=== PATIENT | female | born 1940 | race Caucasian/White ===

== ENCOUNTER 2016-04-28 15:18 | Inpatient (IN) | payer BC, MEDICARE, OTHER ==
[2016-04-28] VITALS (155 sets, daily range): BP systolic 120–130; BP diastolic 55–76; PULSE 64–84; TEMP 97–97.5; O2SAT 93–100
[~2016-04-28] VITALS: Ht 152.4 cm; Wt 77.7 kg
[~2016-04-28 15:18] MED LIST: AMOXICILLIN 8751 TAB PO; ASPIRIN E.C. 8181 MG PO; BYSTOLIC2.5 MG PO; DEPAKOTE 250MG250 MG PO; DEPAKOTE250 M1 PO; ELIQUIS 2.5 PO; INDERAL LA 60MG60 MG PO; LIPITOR20 MG PO; MULTAQ400 MG PO; PREDNISONE20 MG PO; PREVACID 15MG15 M1 PO; PROPRANOLOL60 MG PO; PROZAC40 MG PO; TOPROL XL 50MG50 MG PO; ULTRAM 50MG TAB50 MG PO; XARELTO20 MG PO; ZOVIRAX51 TP
[2016-04-28 15:51] LABS: BASO # 0.1 (0.0-0.2); EOS # 0.2 (0.0-0.7); EOS % 2.2 % (0-4.0); GRAN # 4.6 (1.4-6.5); GRAN % 64.6 % (42.2-75.2); HEMATOCRIT 37.5 % (37.0-47.0); HEMOGLOBIN 12.2 g/dl (12.5-16.0); LYMPH # 1.4 (1.2-3.4); LYMPH % 20.1 % (20.0-51.0); MEAN CELL VOLUME 88 fl (80.0-100.0); MEAN CORPUSCULAR HEMOGLOBIN 29 pg (27.0-31.0); MEAN CORPUSCULAR HGB CONC 33 g/dl (33.0-37.0); MEAN PLATELET VOLUME 8.8 fl (7.4-10.4); MONO # 0.8 (0.1-0.6); MONO % 11.5 % (1.7-9.3); PLATELET COUNT 259 K/mm3 (130-400); RED BLOOD COUNT 4.28 M/mm3 (4.10-5.30); REDCELL DISTRIBUTION WIDTH-CV 13.2 % (11.5-14.5); WHITE BLOOD COUNT 7.2 K/mm3 (4.8-10.8)
[2016-04-28] MEDS ORDERED: FLONASEALLERGY NS (15:53)
[2016-04-28 15:58] LABS: INR 1.3 (0.8-3.0); PROTHROMBIN TIME 14.9 SECONDS (9.7-12.8)
[2016-04-28 16:01] LABS: PARTIAL THROMBOPLASTIN TIME 36.8 SECONDS (26.0-37.0)
[2016-04-28 16:07] LABS: ADJUSTED CALCIUM 9.3 mg/dL (8.4-10.2); ALANINE AMINOTRANSFERASE 43 U/L (9-52); ALBUMIN 4.1 gm/dL (3.5-5.0); ALKALINE PHOSPHATASE 73 U/L (50-136); ANION GAP 12 mmol/L (7-16); BILIRUBIN,TOTAL 0.6 mg/dL (0.0-1.0); BLOOD UREA NITROGEN 11 mg/dL (7-17); CALCIUM 9.4 mg/dL (8.4-10.2); CARBON DIOXIDE 26 mmol/L (22-30); CHLORIDE 102 mmol/L (98-107); CREATININE, serum 0.89 mg/dL (0.52-1.25); GLUCOSE 107 mg/dL (74-106); POTASSIUM 3.7 mmol/L (3.4-5.0); SODIUM 140 mmol/L (137-145); TOTAL PROTEIN 7.2 gm/dL (6.4-8.2)
[2016-04-28 16:19] LABS: TROPONIN-I < 0.012 ng/mL (0.000-0.034)
[2016-04-29] VITALS (960 sets, daily range): BP systolic 109–132; BP diastolic 60–78; PULSE 68–86; TEMP 96.4–97.9; O2SAT 69–100
[2016-04-29 01:45] LABS: PH 7 (5-8); SQUAMOUS EPITHELIAL 0-2 /hpf; URINE APPEARANCE Clear; URINE BACTERIA None Seen /hpf; URINE BILIRUBIN Negative (NEGATIVE); URINE BLOOD Negative (NEGATIVE); URINE COLOR Yellow; URINE GLUCOSE Negative (NEGATIVE); URINE KETONE Negative (NEGATIVE); URINE RBC 0-2 /hpf; URINE UROBILINOGEN Negative (NEGATIVE); URINE WBC None Seen /hpf
[2016-04-29 06:13] LABS: BASO # 0.1 (0.0-0.2); EOS # 0.2 (0.0-0.7); EOS % 3.4 % (0-4.0); GRAN # 3.5 (1.4-6.5); LYMPH # 1.5 (1.2-3.4); LYMPH % 23.4 % (20.0-51.0); MEAN CELL VOLUME 86 fl (80.0-100.0); MEAN CORPUSCULAR HGB CONC 33 g/dl (33.0-37.0); MEAN PLATELET VOLUME 8.9 fl (7.4-10.4); MONO # 0.9 (0.1-0.6); MONO % 14.7 % (1.7-9.3); PLATELET COUNT 264 K/mm3 (130-400); RED BLOOD COUNT 4.19 M/mm3 (4.10-5.30); REDCELL DISTRIBUTION WIDTH-CV 13.2 % (11.5-14.5); WHITE BLOOD COUNT 6.2 K/mm3 (4.8-10.8)
[2016-04-29 06:18] LABS: HEMATOCRIT 36.2 % (37.0-47.0); HEMOGLOBIN 11.9 g/dl (12.5-16.0); MEAN CORPUSCULAR HEMOGLOBIN 28 pg (27.0-31.0)
[2016-04-29 06:26] LABS: ANION GAP 10 mmol/L (7-16); BLOOD UREA NITROGEN 11 mg/dL (7-17); CALCIUM 8.9 mg/dL (8.4-10.2); CARBON DIOXIDE 29 mmol/L (22-30); CHLORIDE 100 mmol/L (98-107); CREATININE, serum 0.86 mg/dL (0.52-1.25); GLUCOSE 98 mg/dL (74-106); POTASSIUM 3.7 mmol/L (3.4-5.0); SODIUM 140 mmol/L (137-145)
[2016-04-29 06:37] LABS: B-TYPE NATRIURETIC PEPTIDE 1210 pg/mL (0-125)
[2016-04-29 06:47] LABS: TROPONIN-I < 0.012 ng/mL (0.000-0.034)
[2016-04-29 11:32] LABS: MAGNESIUM 1.9 mg/dL (1.6-2.3)
[2016-04-30] VITALS (497 sets, daily range): BP systolic 99–135; BP diastolic 55–81; PULSE 78–100; TEMP 96.6–98.6; O2SAT 90–100
[2016-04-30 06:05] LABS: CALCIUM 8.9 mg/dL (8.4-10.2); CREATININE, serum 0.9 mg/dL (0.52-1.25); POTASSIUM 4.1 mmol/L (3.4-5.0)
[2016-05-01 00:18] VITALS: BP 124/82; PULSE 98; TEMP 97.7
[2016-05-01 03:53] VITALS: BP 119/65; PULSE 92; TEMP 97.6
[2016-05-01 07:37] VITALS: BP 135/71; PULSE 102; TEMP 98.2
[2016-05-01 08:14] LABS: INR 1.3 (0.8-3.0); PROTHROMBIN TIME 14.5 SECONDS (9.7-12.8)
[2016-05-01 08:17] LABS: PARTIAL THROMBOPLASTIN TIME 33.1 SECONDS (26.0-37.0)
[2016-05-01 08:19] LABS: CALCIUM 9.1 mg/dL (8.4-10.2); CREATININE, serum 0.93 mg/dL (0.52-1.25); POTASSIUM 4.1 mmol/L (3.4-5.0)
[2016-05-01] MEDS ORDERED: TIKOSYN0.5 MG PO (11:50)
== END 2016-05-01 12:50 | disposition home or self-care (01) | DRG 309 ==
LOC: COL.ER 15:18 → IMCU 17:27 → MEDICAL 04-30 13:16 → IMCU 04-30 13:16 → MEDICAL 04-30 13:16
PROVIDERS: Emergency Medicine; Internal Medicine Cardiovascular Disease; Nurse Practitioner Family
DX: I48.0 Paroxysmal atrial fibrillation (principal); I50.32 Chronic diastolic (congestive) heart failure; I27.2 Other secondary pulmonary hypertension; Z95.2 Presence of prosthetic heart valve; Z79.01 Long term (current) use of anticoagulants; J98.4 Other disorders of lung; Z53.8 Procedure and treatment not carried out for other reasons
CPT/HCPCS: 99223-AI; 99232-AI; 99239; J1940; J2704; J7040; J7050; J7120

== ENCOUNTER → 2016-05-25 | Outpatient (CLI) | payer BC, MEDICARE, OTHER ==
[~2016-05-25] MED LIST changes: +FLONASEALLERGY NS; +TIKOSYN0.5 MG PO
== END ==
LOC: COL.RAD 11:39
DX: I27.2 Other secondary pulmonary hypertension (principal); R91.8 Other nonspecific abnormal finding of lung field
CPT/HCPCS: A9539; A9540

== ENCOUNTER → 2016-11-17 | Outpatient (CLI) | payer BC, MEDICARE, OTHER | LOC: BHSO 08:45 | DX: F31.81 Bipolar II disorder (principal) ==

== ENCOUNTER 2017-04-15 06:05 | Outpatient (CLI) | payer BC, MEDICARE, OTHER ==
[~2017-04-15] VITALS: Ht 165.1 cm; Wt 78.0 kg
[2017-04-15] VITALS (8 sets, daily range): BP systolic 106–154; BP diastolic 56–96; PULSE 51–119; TEMP 97–99
[2017-04-15 06:55] LABS: INR 1.2 (0.8-3.0); PROTHROMBIN TIME 14.3 SECONDS (9.7-12.8)
[2017-04-15 06:56] LABS: POTASSIUM 3.7 mmol/L (3.4-5.0)
[2017-04-15] MEDS ORDERED: TIKOSYN0.25 MG PO (06:58)
[2017-04-15] MEDS ORDERED: MULTI VITAMINS1 TAB PO (07:01)
[2017-04-15 07:30] LABS: THYROID STIMULATING HORMONE 6.31 uIU/mL (0.465-4.680)
== END 2017-04-15 10:47 | disposition home or self-care (01) ==
LOC: EUO 06:05
PROVIDERS: Internal Medicine Interventional Cardiology
DX: I48.0 Paroxysmal atrial fibrillation (principal); I51.7 Cardiomegaly; Z96.652 Presence of left artificial knee joint; Z90.49 Acquired absence of other specified parts of digestive tract
CPT/HCPCS: G9654; J2704; J7030

== ENCOUNTER → 2017-05-12 | Outpatient (CLI) | payer BC, MEDICARE, OTHER ==
[~2017-05-12] MED LIST changes: +MULTI VITAMINS1 TAB PO; +TIKOSYN0.25 MG PO
== END ==
LOC: BHSO 13:08
DX: F31.81 Bipolar II disorder (principal)
CPT/HCPCS: G0463

== ENCOUNTER → 2017-11-02 | Outpatient (CLI) | payer BC, MEDICARE, OTHER | LOC: MC.RAD 13:20 | DX: Z12.31 Encounter for screening mammogram for malignant neoplasm of breast (principal) ==

== ENCOUNTER → 2017-11-10 | Outpatient (CLI) | payer BC, MEDICARE, OTHER | LOC: BHSO 11:50 | DX: F31.81 Bipolar II disorder (principal) | CPT/HCPCS: G0463 ==

== ENCOUNTER → 2018-05-09 | Outpatient (CLI) | payer BC, MEDICARE, OTHER | LOC: BHSO 13:12 | DX: F31.81 Bipolar II disorder (principal) | CPT/HCPCS: G0463 ==

== ENCOUNTER → 2018-12-21 | Outpatient (CLI) | payer BC, MEDICARE, OTHER | LOC: BHSO 10:45 | DX: F31.81 Bipolar II disorder (principal) | CPT/HCPCS: G0463 ==

== ENCOUNTER 2019-06-15 12:40 | Day surgery (SDC) | payer BC, MEDICARE, OTHER ==
[~2019-06-15] VITALS: Ht 165.1 cm; Wt 77.7 kg
[~2019-06-15 12:40] MED LIST changes: +PROZAC 20MG20 MG PO; -PROZAC40 MG PO
[2019-06-15 13:30] VITALS: BP 128/67; PULSE 67
[2019-06-15] MEDS ORDERED: NORVASC 5MG5 MG/TAB PO (13:30)
[2019-06-15] MEDS ORDERED: PROTONIX 40MG T40 MG PO (13:31)
[2019-06-15] MEDS ORDERED: OMEGA-31 SGL PO (13:32)
[2019-06-15] MEDS ORDERED: VITAMIN B COMPL1 SGL PO (13:32)
[2019-06-15] MEDS ORDERED: CALCIUM CARBON650 M2 PO (13:35)
[2019-06-15] MEDS ORDERED: THE MEDICINE S200 M2 PO (13:35)
[2019-06-15] MEDS ORDERED: NATURAL FLAX1000 MG PO (13:36)
[2019-06-15] MEDS ORDERED: VITAMIN D3400 I1 PO (13:36)
[2019-06-15] MEDS ORDERED: LYSINE1000 MG PO (13:37)
[2019-06-15] MEDS ORDERED: LUTEIN20 M1 PO (13:37)
--- NOTE | 2019-06-15 14:06 | NUR ---
Dr Edward in to see pt.Procedure cancelled.Discharge instructions given to pt.Pt verbalizes understanding.Pt escorted out at this time.
== END 2019-06-15 14:08 | disposition home or self-care (01) ==
LOC: COL.CAR 12:40
DX: I48.19 Other persistent atrial fibrillation (principal); G47.33 Obstructive sleep apnea (adult) (pediatric); Z88.6 Allergy status to analgesic agent; Z79.01 Long term (current) use of anticoagulants

== ENCOUNTER → 2019-06-27 | Outpatient (CLI) | payer BC, MEDICARE, OTHER ==
[~2019-06-27] MED LIST changes: +CALCIUM CARBON650 M2 PO; +LUTEIN20 M1 PO; +LYSINE1000 MG PO; +NATURAL FLAX1000 MG PO; +NORVASC 5MG5 MG/TAB PO; +OMEGA-31 SGL PO; +PROTONIX 40MG T40 MG PO; +THE MEDICINE S200 M2 PO; +VITAMIN B COMPL1 SGL PO; +VITAMIN D3400 I1 PO
== END ==
LOC: BHSO 15:29
DX: F31.81 Bipolar II disorder (principal)
CPT/HCPCS: G0463

== ENCOUNTER 2019-11-16 17:09 | Day surgery (SDC) | payer BC, MEDICARE, OTHER ==
[~2019-11-16] VITALS: Ht 167.6 cm; Wt 77.3 kg
[2019-11-16 18:08] VITALS: BP 108/52; PULSE 71; TEMP 99.4
[2019-11-16 18:49] LABS: BASO # 0.1 (0.0-0.2); EOS # 0.1 (0.0-0.7); EOS % 1.3 % (0-4.0); GRAN # 3.6 (1.4-6.5); GRAN % 57.4 % (42.2-75.2); HEMATOCRIT 38.4 % (37.0-47.0); LYMPH # 1.7 (1.2-3.4); MEAN CELL VOLUME 89 fl (80.0-100.0); MEAN CORPUSCULAR HEMOGLOBIN 30 pg (27.0-31.0); MEAN CORPUSCULAR HGB CONC 34 g/dl (33.0-37.0); MEAN PLATELET VOLUME 8.6 fl (7.4-10.4); MONO # 0.8 (0.1-0.6); MONO % 12.7 % (1.7-9.3); PLATELET COUNT 263 K/mm3 (130-400); RED BLOOD COUNT 4.32 M/mm3 (4.10-5.30); REDCELL DISTRIBUTION WIDTH-CV 12.5 % (11.5-14.5)
[2019-11-16 18:53] LABS: INR 1.3 (0.8-3.0); PROTHROMBIN TIME 15.1 SECONDS (9.7-12.8)
[2019-11-16 18:57] LABS: CALCIUM 9.6 mg/dL (8.4-10.2); MAGNESIUM 1.9 mg/dL (1.6-2.3); POTASSIUM 4.3 mmol/L (3.4-5.0)
[2019-11-16 19:32] VITALS: BP 144/81; PULSE 107; TEMP 98.2
[2019-11-16] MEDS ORDERED: TOPROL XL 25MG25 MG PO (19:36)
[2019-11-16] MEDS ORDERED: NORCO 325 MG-51 TAB PO (19:37)
[2019-11-16 20:00] VITALS: BP 144/81; PULSE 107; TEMP 99.2
--- NOTE | 2019-11-16 21:15 | NUR ---
Assessment complete. Resting in bed. Denies pain/ discomfort. Denies needs at this time.
[2019-11-16 23:16] VITALS: BP 131/55; PULSE 82; TEMP 97.9
[2019-11-17] VITALS (8 sets, daily range): BP systolic 108–131; BP diastolic 48–71; PULSE 71–108; TEMP 97.9–98.1
--- NOTE | 2019-11-17 09:43 | NUR ---
SW met with the patient to discuss discharge plan. The patient lives alone in [place]. Her three children live on the [facility]. She reports independence with ADLs and does not have any DME. The patient's PCP is Dr. Gurjit Marroquin and she receives her medications at [facility]. She reports no difficulties obtaining her meds. The patient does not have advanced directives in EMR, but she reports that she does have them completed. She states that her three children: Debra (ph#[phone]), Shantal Hercules, and Annel are her DPOA-HC. The patient plans to return home upon discharge. No additional needs at this time.
--- NOTE | 2019-11-17 10:00 | NUR ---
Patient alert and oriented, answers questions appropriately. See assessment. Heart tones strong and uneven, pulses palpable. No c/o chest pain or pressure. No c/o jaw pain or pressure. No other c/o at this time.
--- NOTE | 2019-11-17 11:00 | NUR ---
Patient to cardioversion/maría at this time.
[2019-11-17 12:37] LABS: BASO # 0.1 (0.0-0.2); BASO % 1.2 % (0.0-2.0); EOS # 0.1 (0.0-0.7); EOS % 2.5 % (0-4.0); GRAN # 2.6 (1.4-6.5); GRAN % 53.9 % (42.2-75.2); HEMATOCRIT 37.2 % (37.0-47.0); HEMOGLOBIN 12.5 g/dl (12.5-16.0); LYMPH # 1.4 (1.2-3.4); LYMPH % 29.5 % (20.0-51.0); MEAN CELL VOLUME 91 fl (80.0-100.0); MEAN CORPUSCULAR HEMOGLOBIN 30 pg (27.0-31.0); MEAN CORPUSCULAR HGB CONC 34 g/dl (33.0-37.0); MEAN PLATELET VOLUME 8.7 fl (7.4-10.4); MONO # 0.6 (0.1-0.6); MONO % 12.5 % (1.7-9.3); PLATELET COUNT 227 K/mm3 (130-400); RED BLOOD COUNT 4.11 M/mm3 (4.10-5.30); REDCELL DISTRIBUTION WIDTH-CV 12.7 % (11.5-14.5)
[2019-11-17 12:47] LABS: INR 1.4 (0.8-3.0); PROTHROMBIN TIME 15.2 SECONDS (9.7-12.8)
[2019-11-17 12:48] LABS: CALCIUM 8.5 mg/dL (8.4-10.2); CREATININE, serum 0.92 (0.52-1.25); POTASSIUM 4.2 mmol/L (3.4-5.0)
--- NOTE | 2019-11-17 15:27 | NUR ---
Discharge instructions reviewed with patient, verbalized understanding. Discharged via wheelchair to auto/home with family at 1527.
== END 2019-11-17 15:27 | disposition home or self-care (01) ==
LOC: SDCO 17:09 → MEDICAL 17:09 → SURG 17:09 → SDCO 11-17 15:27
PROVIDERS: Internal Medicine Interventional Cardiology; Nurse Practitioner
DX: I48.91 Unspecified atrial fibrillation (principal); I20.9 Angina pectoris, unspecified; R53.83 Other fatigue; I48.0 Paroxysmal atrial fibrillation; I95.9 Hypotension, unspecified; Z79.01 Long term (current) use of anticoagulants; G47.33 Obstructive sleep apnea (adult) (pediatric); Z82.3 Family history of stroke
CPT/HCPCS: OP; J2704; J7030

== ENCOUNTER 2019-11-22 14:39 | Inpatient (IN) | payer BC, MEDICARE, OTHER ==
[~2019-11-22] VITALS: Ht 165.1 cm; Wt 74.8 kg
[~2019-11-22 14:39] MED LIST changes: +NORCO 325 MG-51 TAB PO; +TOPROL XL 25MG25 MG PO
[2019-11-22 15:00] LABS: BASO # 0.1 (0.0-0.2); BASO % 1.1 % (0.0-2.0); EOS # 0.1 (0.0-0.7); EOS % 1.4 % (0-4.0); GRAN # 4.5 (1.4-6.5); GRAN % 60.5 % (42.2-75.2); HEMATOCRIT 44.3 % (37.0-47.0); HEMOGLOBIN 14.6 g/dl (12.5-16.0); LYMPH # 1.8 (1.2-3.4); LYMPH % 24.7 % (20.0-51.0); MEAN CELL VOLUME 91 fl (80.0-100.0); MEAN CORPUSCULAR HEMOGLOBIN 30 pg (27.0-31.0); MEAN CORPUSCULAR HGB CONC 33 g/dl (33.0-37.0); MEAN PLATELET VOLUME 8.8 fl (7.4-10.4); MONO # 0.9 (0.1-0.6); MONO % 11.6 % (1.7-9.3); PLATELET COUNT 305 K/mm3 (130-400); RED BLOOD COUNT 4.87 M/mm3 (4.10-5.30); REDCELL DISTRIBUTION WIDTH-CV 12.6 % (11.5-14.5)
[2019-11-22 15:06] LABS: ALANINE AMINOTRANSFERASE 18 U/L (4-34); ALBUMIN 4.4 gm/dL (3.5-5.0); ALKALINE PHOSPHATASE 74 U/L (50-136); ANION GAP 9 mmol/L (7-16); AST,SGOT 23 U/L (15-37); BILIRUBIN,TOTAL 0.5 mg/dL (0.0-1.0); BLOOD UREA NITROGEN 18 mg/dL (7-17); CALCIUM 9.5 mg/dL (8.4-10.2); CARBON DIOXIDE 28 mmol/L (22-30); CHLORIDE 103 mmol/L (98-107); CREATININE, serum 1.16 (0.52-1.25); GLUCOSE 102 mg/dL (74-106); POTASSIUM 4.1 mmol/L (3.4-5.0); SODIUM 140 mmol/L (137-145); TOTAL PROTEIN 7.8 gm/dL (6.4-8.2)
[2019-11-22 15:18] LABS: TROPONIN-I < 0.012 ng/mL (0.000-0.035)
[2019-11-22 18:26] VITALS: BP 132/88; PULSE 105; TEMP 97.9
[2019-11-22 19:23] VITALS: BP 112/67; PULSE 108; TEMP 97.6
--- NOTE | 2019-11-22 19:45 | NUR ---
Received report from Adelina. Seen patient awake, lying in bed. She is alert and oriented. Assesment done. Lungs are clear. On tele. Denies pain.
[2019-11-22] MEDS ORDERED: TIKOSYN0.5 MG PO (20:33)
[2019-11-22 23:25] VITALS: BP 127/78; PULSE 86; TEMP 98.4
[2019-11-23] VITALS (11 sets, daily range): BP systolic 101–133; BP diastolic 55–86; PULSE 58–104; TEMP 97.7–98.6
--- NOTE | 2019-11-23 05:58 | NUR ---
Patient had uneventful night. Maintained on NPO just in case she will have cardioversion this morning. Patient aware. Denies pain. Heart rate still running on 90s-110s.
--- NOTE | 2019-11-23 07:15 | NUR ---
Report with MALIHA Waldron. Pt resting in bed, A&O x 3, denies needs at this time. Pt aware of NPO status for possible procedure. Call light in reach.
--- NOTE | 2019-11-23 09:00 | NUR ---
Assessment complete. Pt resting in bed, A&O x 4. Pt denies pain at this time, reports intermittent chest discomfort 3 out of 10. POC reviewed with pt. No further needs reported. Call light in reach.
[2019-11-23 10:44] LABS: INR 1.2 (0.8-3.0); PROTHROMBIN TIME 13.8 SECONDS (9.7-12.8)
[2019-11-23 10:45] LABS: POTASSIUM 4.1 mmol/L (3.4-5.0)
[2019-11-23 11:20] LABS: THYROID STIMULATING HORMONE 4.04 uIU/mL (0.465-4.680)
--- NOTE | 2019-11-23 11:29 | NUR ---
Liquid Floor And Wall Applier met with the patient to complete initial intake. The patient lives in [place] with her two cats, Maia and Rod. The patient is a professor at [employer]. The patient denies DME use and is independent with ADLs. The patient's PCP is Dr. Marroquin and patient receives medications from [facility] with no difficulties. The patient does not have advanced directives in the EMR but states they are completed. They designate her three daughters, Anisa Hercules ([phone]) from [facility], Debra Estrada ([phone]) from [place], [place], and Daylin from [place], [place]. The patient plans to return home at discharge. Her grad educational assistant teacher Jordyn Renee will be providing transportation. There are no additional needs at this time.
--- NOTE | 2019-11-23 13:45 | NUR ---
Order received for pt to have cardioversion today. Case scheduled for [address] Edward notified by this RN that H&P needed prior to procedure. states he will enter H&P.
--- NOTE | 2019-11-23 15:15 | NUR ---
Pt back to room from blood bank laboratory technologist following procedure, awake and alert. Water and sandwich provided. Pt denies needs. VSS. Call light in reach.
--- NOTE | 2019-11-23 20:37 | NUR ---
Resting in bed. Assessment complete. Lungs clear. Heart sounds normal. Bowels active x4. Pulses present throughout. No edema noted. INT right AC without complications. Denies pain. Denies needs. Call light in reach.
--- NOTE | 2019-11-23 23:59 | NUR ---
Resting in bed. Denies needs. Call light in reach.
--- NOTE | 2019-11-24 04:04 | NUR ---
Resting in bed. Denies needs. Call light in reach.
[2019-11-24 04:09] VITALS: BP 124/60; PULSE 78; TEMP 98.8
--- NOTE | 2019-11-24 06:20 | NUR ---
Patient had uneventful night. Resting in bed this AM. Call light in reach.
--- NOTE | 2019-11-24 06:59 | NUR ---
Report given to MALIHA Momin
[2019-11-24 08:05] VITALS: BP 116/62; PULSE 66; TEMP 97
[2019-11-24 11:07] VITALS: BP 120/50; PULSE 70; TEMP 97.1
[2019-11-24 16:59] VITALS: BP 135/68; PULSE 73; TEMP 98.2
--- NOTE | 2019-11-24 18:14 | NUR ---
Pt assessment completed and charted. medications administered per jun. Pt has had uneventful day. Pt is A&O, independent in room, on room air, denies SOB, breathing is even and unlabored. Pt denies pain. LS cta, heart RRR. RAC INT IV flushes w/o difficulty. Pulse strong bilaterally. No needs expressed. Pt to have evening dose of tikosyn and then discharge after EKG. This nurse notified diamond about qtc of 508, pt was ok to take morning dose of tikosyn, notify physician if qtc>550.
[2019-11-24 19:28] VITALS: BP 126/72; PULSE 72; TEMP 98
--- NOTE | 2019-11-24 19:45 | NUR ---
Resting in bed. Assessment complete. Lungs clear. Heart sounds normal. Bowels active x4. Pulses strong throughout. No edema noted. INT right AC without complications. Patient denies pain. Denies needs at this time. Call light in reach.
--- NOTE | 2019-11-24 22:24 | NUR ---
Spoke with Dr. Edward and review EKG. Okay to discharge and continue home medications as is.
--- NOTE | 2019-11-24 23:00 | NUR ---
Patient discharge summary and paperwork reviewed. INT right AC removed. All questions answered. Telemetry removed. Patient taken via wheelchair to ER doors and friends here to merchandise pickup/receiving associate patient. Denies any further needs at this time.
== END 2019-11-24 23:00 | disposition home or self-care (01) | DRG 310 ==
LOC: COL.ER 14:39 → MEDICAL 15:22
PROVIDERS: Emergency Medicine; ADMIT Internal Medicine Interventional Cardiology
PROC: 5A2204Z Restoration of Cardiac Rhythm, Single (ICD-10-PCS; principal; 2019-11-23)
DX: I48.0 Paroxysmal atrial fibrillation (principal); Z79.01 Long term (current) use of anticoagulants; I51.7 Cardiomegaly; Z87.891 Personal history of nicotine dependence; Z88.8 Allergy status to other drugs, medicaments and biological substances
CPT/HCPCS: J2704; J7030

== ENCOUNTER → 2020-01-08 | Outpatient (CLI) | payer BC, MEDICARE, OTHER | LOC: BHSO 14:05 | DX: F31.81 Bipolar II disorder (principal) | CPT/HCPCS: G0463 ==

== ENCOUNTER → 2020-02-14 | Outpatient (CLI) | payer BC, MEDICARE, OTHER ==
[2020-02-14 21:26] LABS: TROPONIN-I < 0.012 ng/mL (0.000-0.035)
== END ==
LOC: ZCOL.LAB 20:17
PROVIDERS: Internal Medicine Interventional Cardiology
DX: R06.02 Shortness of breath (principal)

== ENCOUNTER 2020-04-24 07:30 | Day surgery (SDC) | payer BC, MEDICARE, OTHER ==
[~2020-04-24] VITALS: Ht 165.1 cm; Wt 83.7 kg
[2020-04-24] MEDS ORDERED: LASIX 20MG TABL20 MG PO (08:32)
[2020-04-24] MEDS ORDERED: 00186-0372-20 IH (08:33)
--- NOTE | 2020-04-24 08:39 | NUR ---
Pt SR procedure cancelled
--- NOTE | 2020-04-24 08:55 | NUR ---
Pt ambulated to bathrooms in Radiology waiting room. Got med list and pt was at elevators, asked pt to wait fordischarge paperwork and pt stated " I am leaving" Ambulated with pt to private car driven by daughter
== END 2020-04-24 08:55 | disposition home or self-care (01) ==
LOC: COL.CAR 07:30
DX: I48.0 Paroxysmal atrial fibrillation (principal); I51.7 Cardiomegaly; Z79.01 Long term (current) use of anticoagulants; G47.33 Obstructive sleep apnea (adult) (pediatric); I27.20 Pulmonary hypertension, unspecified
CPT/HCPCS: J2704

== ENCOUNTER 2020-05-23 10:32 | Day surgery (SDC) | payer BC, MEDICARE, OTHER ==
[~2020-05-23] VITALS: Ht 165.1 cm; Wt 82.6 kg
[2020-05-23] VITALS (10 sets, daily range): BP systolic 113–149; BP diastolic 75–84; PULSE 90–103; TEMP 95–98.3
[~2020-05-23 10:32] MED LIST changes: +00186-0372-20 IH; +LASIX 20MG TABL20 MG PO
[2020-05-23] MEDS ORDERED: 00186-0372-20 IH (13:12)
[2020-05-23] MEDS ORDERED: NORVASC 5MG5 MG/TAB PO (13:13)
[2020-05-23] MEDS ORDERED: CARDIZEM 30MG T30 MG PO (13:14)
[2020-05-23 13:44] LABS: HEMATOCRIT 38.3 % (37.0-47.0); HEMOGLOBIN 12.9 g/dl (12.5-16.0); MEAN CELL VOLUME 88 fl (80.0-100.0); MEAN CORPUSCULAR HEMOGLOBIN 30 pg (27.0-31.0); MEAN CORPUSCULAR HGB CONC 34 g/dl (33.0-37.0); MEAN PLATELET VOLUME 8.6 fl (7.4-10.4); PLATELET COUNT 260 K/mm3 (130-400); RED BLOOD COUNT 4.34 M/mm3 (4.10-5.30); REDCELL DISTRIBUTION WIDTH-CV 12.7 % (11.5-14.5)
[2020-05-23 14:00] LABS: CALCIUM 8.9 mg/dL (8.4-10.2); CREATININE, serum 0.99 (0.52-1.25); POTASSIUM 4.1 mmol/L (3.4-5.0)
[2020-05-23 14:04] LABS: INR 1.1 (0.8-3.0); PROTHROMBIN TIME 12.4 SECONDS (9.7-12.8)
--- NOTE | 2020-05-23 14:45 | NUR ---
SEE MERGE FOR ALL MEDICATION ADMINISTRATION TIMES, INTRA AND POST SEDATION ASSESSMENT
--- NOTE | 2020-05-23 15:40 | NUR ---
PT BACK FROM COMMUNICATIONS AND SIGNALS SUPERVISOR, BS REPORT FROM DARIAN JETT. PT IS GCS 15, PWD, TR BAND TO RT WRIST, CMS INTACT DISTAL. PT AWARE OF POC. WARM BLANKET GIVEN, CALL LIGHT IN REACH. SR HR 90'S ON MONITOR. WCTM
--- NOTE | 2020-05-23 18:32 | NUR ---
PT sitting on edge of bed eating late lunch, she is ready for departure, daughter is on the way. Pt has done well during recovery. she has remained in sinus rhythm 90's. Her only complaint has been some difficulty breathing. I observed 1 short episode of wheezing with sob after walking to toilet in rm 11, and pt recovered quickly with rest, her ls were clear throughout, with diminished exp sounds in bases. pt reports this is what she has been experiencing with her breathing although it seems a bit worse since the procedure. vitals have remained stable throughout, o2 sats 97% on room air. Pt is eupnic while sitting and eating. TR band was deflated with no problem, site dressed with bandaid, folded 2x2 and coban, cms intact. iv was dc'd with cath intact, dressing applied. pt will be escorted to exit via wheelchair. I reviewed dc and fu instructions with pt, she verbalized understanding and denied questions at time of departure.
== END 2020-05-23 19:18 | disposition home or self-care (01) ==
LOC: COL.CAR 10:32
PROVIDERS: Internal Medicine Interventional Cardiology
DX: I25.10 Atherosclerotic heart disease of native coronary artery without angina pectoris (principal); I48.0 Paroxysmal atrial fibrillation; I51.7 Cardiomegaly; Z79.01 Long term (current) use of anticoagulants; R94.39 Abnormal result of other cardiovascular function study
CPT/HCPCS: J1644; J2250; J3010; Q9967

== ENCOUNTER 2022-07-16 16:07 | Outpatient (RCR) | payer MEDICARE, OTHER ==
[~2022-07-16 16:07] MED LIST changes: +CARDIZEM 30MG T30 MG PO
== END 2022-07-24 | disposition home or self-care (01) ==
LOC: COL.CR
DX: I27.20 Pulmonary hypertension, unspecified (principal)
CPT/HCPCS: G0238

== ENCOUNTER 2023-10-14 15:28 | Emergency (ER) | payer MEDICARE, OTHER ==
[~2023-10-14] VITALS: Ht 162.6 cm; Wt 72.7 kg
[2023-10-14 15:29] VITALS: TEMP 98.2
[2023-10-14 16:10] LABS: BASO # 0.1 K/mm3 (0.0-0.2); BASO % 1.2 % (0.0-2.0); EOS # 0.1 K/mm3 (0.0-0.7); EOS % 1.7 % (0.0-4.0); GRAN # 3.6 K/mm3 (1.4-6.5); GRAN % 55.4 % (42.2-75.2); HEMATOCRIT 38.3 % (37.0-47.0); HEMOGLOBIN 12.6 g/dl (12.5-16.0); LYMPH # 1.8 K/mm3 (1.2-3.4); LYMPH % 27.9 % (20.0-51.0); MEAN CELL VOLUME 91 fl (80.0-100.0); MEAN CORPUSCULAR HEMOGLOBIN 30 pg (27-31); MEAN CORPUSCULAR HGB CONC 33 g/dl (33.0-37.0); MEAN PLATELET VOLUME 8.8 fl (7.4-10.4); MONO # 0.9 K/mm3 (0.1-0.6); MONO % 13.3 % (1.7-9.3); PLATELET COUNT 242 K/mm3 (130-400); RED BLOOD COUNT 4.22 M/mm3 (4.10-5.30); REDCELL DISTRIBUTION WIDTH-CV 12.9 % (11.5-14.5)
[2023-10-14 16:19] LABS: ALBUMIN 3.4 g/dL (3.4-4.8); BILIRUBIN,TOTAL 0.6 mg/dL (0.2-1.2); CREATININE, serum 1.2 mg/dL (0.57-1.11); TOTAL PROTEIN 5.9 g/dl (6.2-8.1)
[2023-10-14 17:43] LABS: COLLECTION METHOD CLEAN CATCH
[2023-10-14 17:54] LABS: URINE APPEARANCE CLOUDY (CLEAR/HAZY); URINE BLOOD NEGATIVE (NEGATIVE); URINE COLOR Dark Yellow (YELLOW); URINE GLUCOSE NEGATIVE (NEGATIVE); URINE KETONE NEGATIVE (NEGATIVE); URINE NITRATE NEGATIVE (NEGATIVE); URINE PROTEIN(semi-quant) NEGATIVE (NEGATIVE); URINE UROBILINOGEN 0.2 E.U/dL (0.2-1.0)
[2023-10-14] MEDS ORDERED: MACROBID 1100 MG/CAP PO (18:40)
[2023-10-14] MEDS ORDERED: Nitrofurantoin (Mono/Macro) 100 MG CAP PO ONE (18:45)
[2023-10-14 18:50] VITALS: BP 138/76; PULSE 68
== END 2023-10-14 19:01 | disposition home or self-care (01) ==
LOC: COL.ER 15:28
PROVIDERS: Emergency Medicine
DX: I27.21 Secondary pulmonary arterial hypertension (principal); N30.90 Cystitis, unspecified without hematuria; R53.81 Other malaise

== ENCOUNTER 2023-11-24 15:19 | Inpatient (IN) | payer MEDICARE, OTHER ==
[~2023-11-24] VITALS: Ht 162.6 cm; Wt 71.6 kg
[2023-11-24] VITALS (10 sets, daily range): BP systolic 90–136; BP diastolic 49–77; PULSE 74–117; TEMP 98.4–99.1
[~2023-11-24 15:19] MED LIST changes: +MACROBID 1100 MG/CAP PO
[2023-11-24 15:57] LABS: BASO % 0.4 % (0.0-2.0); GRAN # 8.7 K/mm3 (1.4-6.5); GRAN % 83.4 % (42.2-75.2); HEMATOCRIT 37.3 % (37.0-47.0); HEMOGLOBIN 12.3 g/dl (12.5-16.0); LYMPH # 0.6 K/mm3 (1.2-3.4); LYMPH % 5.9 % (20.0-51.0); MEAN CELL VOLUME 91 fl (80.0-100.0); MEAN CORPUSCULAR HEMOGLOBIN 30 pg (27-31); MEAN CORPUSCULAR HGB CONC 33 g/dl (33.0-37.0); MEAN PLATELET VOLUME 9.3 fl (7.4-10.4); MONO % 9.9 % (1.7-9.3); PLATELET COUNT 213 K/mm3 (130-400); RED BLOOD COUNT 4.09 M/mm3 (4.10-5.30); REDCELL DISTRIBUTION WIDTH-CV 13.1 % (11.5-14.5)
[2023-11-24] MEDS ORDERED: Adenosine 6 MG/2 ML VIAL IV ONE (16:00)
[2023-11-24 16:07] LABS: ALANINE AMINOTRANSFERASE 11 U/L (0-55); ALBUMIN 3.1 g/dL (3.4-4.8); ALKALINE PHOSPHATASE 56 U/L (40-150); ANION GAP 11 mmol/L (7-16); AST,SGOT 17 U/L (5-34); BILIRUBIN,TOTAL 0.9 mg/dL (0.2-1.2); BLOOD UREA NITROGEN 19 mg/dL (10-20); CALCIUM 8.6 mg/dL (8.4-10.2); CHLORIDE 105 mEq/L (98-107); CREATININE, serum 1.14 mg/dL (0.57-1.11); GLUCOSE 121 mg/dL (70-99); POTASSIUM 3.9 mEq/L (3.5-4.5); SODIUM 138 mEq/L (136-145); TOTAL PROTEIN 6.3 g/dl (6.2-8.1)
[2023-11-24 16:17] LABS: TROPONIN-I < 0.010 ng/mL (0.00-0.033)
[2023-11-24] MEDS ORDERED: dilTIAZem 25 MG/5 ML VIAL IV ONE (16:30)
[2023-11-24 17:27] LABS: COLLECTION METHOD CLEAN CATCH
[2023-11-24 17:42] LABS: PH 6.5 (5.0-8.5); URINE APPEARANCE CLOUDY (CLEAR/HAZY); URINE BLOOD 2+ (NEGATIVE); URINE COLOR YELLOW (YELLOW); URINE GLUCOSE NEGATIVE (NEGATIVE); URINE KETONE NEGATIVE (NEGATIVE); URINE NITRATE POSITIVE (NEGATIVE); URINE PROTEIN(semi-quant) 1+ (NEGATIVE); URINE UROBILINOGEN 0.2 E.U/dL (0.2-1.0)
[2023-11-24] MEDS ORDERED: cefTRIAXone 1 G in Water For Injection,Sterile 10 ML IV ONE (18:30)
[2023-11-24] MEDS ORDERED: TRELEGY ELLIPT1 EAC1 IH (19:10)
[2023-11-24] MEDS ORDERED: PHARMASSURE L-500 MG PO (19:10)
[2023-11-24] MEDS ORDERED: ELIQUIS 5MG PO (19:10)
[2023-11-24] MEDS ORDERED: VITAMIND3 5000 PO (19:10)
[2023-11-24] MEDS ORDERED: FOLIC ACID 40400 MCG PO (19:11)
[2023-11-24] MEDS ORDERED: FLAXSEED OIL1000 MG PO (19:11)
[2023-11-24] MEDS ORDERED: OMEGA-3 1000 MG1 CAP PO (19:11)
[2023-11-24] MEDS ORDERED: CALTRATE-600 W600 MG PO (19:11)
[2023-11-24] MEDS ORDERED: DEPAKOTE ER 50500 MG PO (19:12)
[2023-11-24] MEDS ORDERED: XOPENEX HF0.045 MG/A IH (19:15)
[2023-11-24] MEDS ORDERED: Levalbuterol Neb Soln 1.25 MG/3 ML UD IH PRN (19:30)
[2023-11-24] MEDS ORDERED: Bisacodyl 5 MG TAB PO PRN (20:00)
[2023-11-24] MEDS ORDERED: Docusate Sodium 100 MG CAP PO PRN (20:00)
[2023-11-24] MEDS ORDERED: NS 1,000 ML IV SCH (20:00)
[2023-11-24] MEDS ORDERED: Acetaminophen 325 MG TAB PO PRN (20:00)
[2023-11-24] MEDS ORDERED: Potassium Bicarbonate/Citrate 20 MEQ Effervescent TAB PO ONE (20:15)
[2023-11-24] MEDS ORDERED: Doxycycline Hyclate 100 MG in NS 150 ML IV SCH (20:15)
[2023-11-24] MEDS ORDERED: *Potassium Replacement Protocol MC SCH (20:15)
[2023-11-24] MEDS ORDERED: Apixaban 5 MG TABLET PO SCH (21:00)
[2023-11-24] MEDS ORDERED: Atorvastatin 20 MG TAB PO SCH (21:00)
[2023-11-24 22:50] LABS: MAGNESIUM 1.5 mg/dL (1.6-2.6)
[2023-11-24 23:03] LABS: VALPROIC ACID (DEPAKENE) 34.7 ug/mL (43.5-90.5)
[2023-11-24] MEDS ORDERED: FLUoxetine 20 MG CAP PO SCH (23:15)
--- NOTE | 2023-11-24 23:50 | NUR ---
Called TELE at this time and asked when patient converted to sinus rhythm. Was notified she converted at 2056 and appears to have a 1st degree heart block. Hospitalist notifed of this.
[2023-11-25] VITALS (16 sets, daily range): BP systolic 93–160; BP diastolic 48–85; PULSE 74–92; TEMP 97.4–99.1
[2023-11-25] MEDS ORDERED: MASON NATURAL2000 IU PO (00:15)
[2023-11-25 05:57] LABS: BASO % 0.4 % (0.0-2.0); EOS % 0.1 % (0.0-4.0); GRAN # 5.9 K/mm3 (1.4-6.5); GRAN % 77.3 % (42.2-75.2); LYMPH # 0.8 K/mm3 (1.2-3.4); LYMPH % 10.3 % (20.0-51.0); MEAN CELL VOLUME 93 fl (80.0-100.0); MEAN CORPUSCULAR HGB CONC 33 g/dl (33.0-37.0); MEAN PLATELET VOLUME 9.7 fl (7.4-10.4); MONO # 0.9 K/mm3 (0.1-0.6); MONO % 11.2 % (1.7-9.3); PLATELET COUNT 176 K/mm3 (130-400); RED BLOOD COUNT 3.33 M/mm3 (4.10-5.30); REDCELL DISTRIBUTION WIDTH-CV 13.4 % (11.5-14.5)
--- NOTE | 2023-11-25 06:00 | NUR ---
Patient resting in bed with purewick in place. Cardizem drip remains at 5mL/hr. Blood pressures have been soft, MAP above 65. Hospitalit Delisa notified of this and stated to just keep an eye on her blood pressures and make sure the MAP stays above 65. Call light and persoanl items in reach. Bed in low position and bed alarm on.
[2023-11-25 06:06] LABS: HEMATOCRIT 30.8 % (37.0-47.0); HEMOGLOBIN 10.1 g/dl (12.5-16.0); MEAN CORPUSCULAR HEMOGLOBIN 30 pg (27-31)
[2023-11-25 06:12] LABS: CALCIUM 7.9 mg/dL (8.4-10.2); CREATININE, serum 0.95 mg/dL (0.57-1.11); POTASSIUM 3.8 mEq/L (3.5-4.5)
[2023-11-25] MEDS ORDERED: Budesonide Neb Susp 0.5 MG/2 ML AMP IH SCH (07:00)
--- NOTE | 2023-11-25 07:12 | NUR ---
TRENTON Kraus contacted and notified of positive blood culture growing e-coli. Patient has had recurrent UTIs since 10/14/23 and Urine culture from 10/13 grew pansensitive e-coli.
--- NOTE | 2023-11-25 08:17 | NUR ---
PATIENT RESTING IN BED. ALERT AND ORIENTED. SHIFT ASSESSMENT COMPLETE. COMPLAINING OF HEADACHE. TYLENOL GIVEN PER JUN. CARDIZEM GTT INFUSING IV PER JUN. VSS. DENIES FURTHER NEEDS OR CONCERNS AT THIS TIME.
[2023-11-25] MEDS ORDERED: FLUoxetine 20 MG CAP PO SCH (09:00)
[2023-11-25] MEDS ORDERED: Umeclidinium/Vilanterol 62.5-25 MCG INHALATION/INHALER IH SCH (09:00)
[2023-11-25] MEDS ORDERED: Cholecalciferol (Vit D3) 5000 Units Capsule PO SCH (09:00)
[2023-11-25] MEDS ORDERED: Pantoprazole 40 MG in NS 10 ML IV SCH (09:00)
[2023-11-25] MEDS ORDERED: Calcium Carb/Vit D3 500 mg-200 Units TAB PO SCH (09:00)
[2023-11-25] MEDS ORDERED: Multivitamin TAB PO SCH (09:00)
[2023-11-25] MEDS ORDERED: Folic Acid 1 MG TAB PO SCH (09:00)
[2023-11-25] MEDS ORDERED: Fluticasone/Umeclidinium/Vilanterol **** subs to Budesonide + Umeclid/Vilant IH SCH (09:00)
[2023-11-25] MEDS ORDERED: Dofetilide 250 MCG CAP PO SCH (09:14)
--- NOTE | 2023-11-25 12:18 | NUR ---
Data: Spiritual care visit attempted during Senior Human Resources Representative rounds. Patient was on the phone. Assessment: None at this time. Plan of Care: Chaplains will remain available as needed/requested while Patient is admitted to this hospital.
--- NOTE | 2023-11-25 12:38 | NUR ---
die set up worker met with pt to discuss intake information. She reports to live with someone in [place]. She sees Dr. Marroquin for PCP needs and obtains medications from [facility] with no difficulties. She reports to be independent with ADLS and uses a cane, CPAP, PRN oxygen through [employer]. She states her daughter is DPOA-HC, Delisa [phone]. Pt reports her daughter might have a copy. Discharge Plan: home
--- NOTE | 2023-11-25 14:08 | NUR ---
MAHIN reviewed PT/OT notes reccomedning home with HH and a FWW. SW met with pt to provide Medicare.gov list and discuss. She reports not having this before and will review with her daughter today. She was agreeable to the FWW being ordered and was fine with [facility]. She was not familiar with any other places. MAHIN had Dr. Stephanie Whipple sign the walker order and faxed these to [facility]. Discharge Plan: home with HH
--- NOTE | 2023-11-25 16:00 | NUR ---
PATIENT COMPLAINING OF BACK PAIN. LIDOCAINE APPLIED TO LOWER BACK. ICE PACK APPLIED FOR CONT BROOKS.
[2023-11-25] MEDS ORDERED: Lidocaine 4% Topical Patch TP SCH (16:02)
[2023-11-25] MEDS ORDERED: cefTRIAXone 2 G in Water For Injection,Sterile 20 ML IV SCH (19:00)
--- NOTE | 2023-11-25 20:15 | NUR ---
Patient resting in bed. Rates her pain at 5/10 in her neck and upper back, will give tylenol when available. Offered to help patient reposition to see if that would help and denied need to reposition. Other needs met. Assessment complete. IV in right forearm infusing without complications. IVs in left and right AC flush easliy without complications. Purewick in place. Call light and personal items in reach. Bed in low position and bed alarm on.
--- NOTE | 2023-11-25 21:45 | NUR ---
Tension release provided for headache pain rating 9/10 and tylenol given. Patient stated tension release was helpful and feeling better, rating pain 6-7/10. Attempting to contact hospitalist for muscle pain, waiting response.
[2023-11-25] MEDS ORDERED: Cyclobenzaprine 10 MG TAB PO ONE (23:45)
--- NOTE | 2023-11-25 23:50 | NUR ---
Spoke with hospitalist Delisa about patient neck and back pain. Informed about Dr. Edward's concern for patients pain and tylenol not working for patient. Patient stated she has taken some muscle relaxers for this type of pain and it seemed to help. Recieved orders for 10mg PO flexeril one time dose.
[2023-11-26] VITALS (352 sets, daily range): BP systolic 120–156; BP diastolic 61–88; PULSE 92–126; TEMP 97.9–98.8; O2SAT 65–100
--- NOTE | 2023-11-26 06:15 | NUR ---
Patient resting in bed with eyes closed. Patient recieved a one time dose of flexeril for muscle pain in her neck and back which helped the patients pain and patient was able to get sleep over night. No other changes. Call light and personal items in reach. Bed in low position and bed alarm on.
[2023-11-26 06:40] LABS: BASO % 0.6 % (0.0-2.0); EOS % 0.1 % (0.0-4.0); GRAN # 5.5 K/mm3 (1.4-6.5); GRAN % 76.8 % (42.2-75.2); HEMOGLOBIN 10.9 g/dl (12.5-16.0); LYMPH # 0.6 K/mm3 (1.2-3.4); LYMPH % 7.8 % (20.0-51.0); MEAN CELL VOLUME 90 fl (80.0-100.0); MEAN CORPUSCULAR HEMOGLOBIN 31 pg (27-31); MEAN CORPUSCULAR HGB CONC 35 g/dl (33.0-37.0); MEAN PLATELET VOLUME 9.4 fl (7.4-10.4); PLATELET COUNT 146 K/mm3 (130-400); RED BLOOD COUNT 3.51 M/mm3 (4.10-5.30); REDCELL DISTRIBUTION WIDTH-CV 13.1 % (11.5-14.5)
[2023-11-26 06:49] LABS: HEMATOCRIT 31.5 % (37.0-47.0)
[2023-11-26 06:52] LABS: CALCIUM 8.3 mg/dL (8.4-10.2); CREATININE, serum 0.81 mg/dL (0.57-1.11); POTASSIUM 3.8 mEq/L (3.5-4.5)
--- NOTE | 2023-11-26 08:45 | NUR ---
NOTIFIED PATIENT COMPLAINING SHE FEELS LIKE SHE CANT BREATH. PATIENT O2 SAT STABLE ON 3LNC. PATIENT SITTING UP AT 90DEGREE ANGLE IN BED. NO NEW ORDERS AT THIS TIME. THIS RN CALLED RT FOR TREATMENT/ASSESSMENT
--- NOTE | 2023-11-26 09:45 | NUR ---
MD CALLED THAT PATIENTS HEART RATE HAS REACHDED 140-150S HOWEVER DOES NOT SUSTAIN. PATIENT HR CURRENTLY ANYWHERE FROM 90-150. PER MD SHE WILL PLACE ORDERS FOR PO CARDIZEM AND SHE SPKOKE WITH CARDIOLOGY.
[2023-11-26] MEDS ORDERED: [UNRECOGNIZED DRUG - REMARK] PO SCH (10:13)
[2023-11-26] MEDS ORDERED: Furosemide 40 MG/4 ML VIAL IV SCH (10:27)
[2023-11-26] MEDS ORDERED: dilTIAZem CD (24-HR) 120 MG CAP PO SCH ×2 (10:28→10:30)
--- NOTE | 2023-11-26 11:40 | NUR ---
NOTIFIED PATIENT FEELS BETTER AFTER LASIX DOSE. HOWEVER INFORMED THIS RN PATIENT WILL TRANSFER TO ICU. MD PSYCHIATRY NOTIFIED.
--- NOTE | 2023-11-26 12:59 | NUR ---
mend worker attended clinical rounding and was informed pt will be IMCU status. SW was made aware by RN and Dr. Whipple that pt has had a lot of medical needs and concerns, and pt's daughter did, so SW held off on following up on Home Health option. SW informed [facility] where the FWW is pending that pt is not discharging today. Discharge Plan: home with HH, tbd-- SW will f/u on choice and FWW
--- NOTE | 2023-11-26 13:40 | NUR ---
REPORT GIVEN EARLIER TO REAL ESTATE ADMINISTRATOR JESS. ADAME TRANSFERED TO ICU ROOM 2. PATIENTS DAUGHTER EBONIE CALLED WHILE IN ROOM WITH PATIENT FOR UPDATE. ALL QUESTIONS ANSWERED BY THIS RN.
[2023-11-26] MEDS ORDERED: hydrOXYzine HCl 10 MG TAB PO PRN (15:45)
[2023-11-26] MEDS ORDERED: dilTIAZem 60 MG TAB PO ONE (20:15)
[2023-11-26] MEDS ORDERED: dilTIAZem CD (24-HR) 120 MG CAP PO ONE (20:15)
[2023-11-26 21:22] LABS: CALCIUM 8.7 mg/dL (8.4-10.2); CREATININE, serum 0.88 mg/dL (0.57-1.11); MAGNESIUM 1.4 mg/dL (1.6-2.6); POTASSIUM 3.6 mEq/L (3.5-4.5)
[2023-11-26 22:51] LABS: ARTERIAL BLD GAS O2 SATURATION 94.6 % (92-100); ARTERIAL BLD GAS TCO2 CT 23.6; ARTERIAL BLOOD GAS BASE EXCESS 1.3 (-2-2); ARTERIAL BLOOD GAS HCO3 22.8 meq/L (22-26); ARTERIAL BLOOD GAS PCO2 26.9 mmHg (35-45); ARTERIAL BLOOD GAS PO2 63.6 mmHg (80-100); ARTERIAL BLOOD GAS pH 7.55 (7.35-7.45)
[2023-11-26] MEDS ORDERED: Magnesium Sulfate 8% 50 ML IV ONE (23:00)
[2023-11-26] MEDS ORDERED: Potassium Chloride 100 ML IV SCH (23:15)
[2023-11-27] VITALS (886 sets, daily range): BP systolic 106–130; BP diastolic 47–68; PULSE 77–105; TEMP 98.5–98.9; O2SAT 74–100
--- NOTE | 2023-11-27 00:18 | NUR ---
PT IS RESTING IN THE BED. SHE IS A LITTLE FIDGETY AND SHAKY. SHE DOES HAVE SOME INCREASED WORK OF BREATHING. SHE IS ON 2L NC AT THIS TIME. SHE DOES NOT ENDORSE ANYTHING IS WRONG. SHE DOES STATE SHE WEARS OXYGEN AT HOME. SHE HAS A PUREWICK IN PLACE. SHE HAS 3 PERIPHERAL IV SITES WITH NOTHING INFUSING. SHE IS ALERT AND ORIENTED. SHE IS CURRENTLY IN AFIB WITH HEART RATES UP TO THE 120'S. SHE HAS HER CALLBELL AT THE BEDSIDE AND HER OWN PERSONAL PHONE.
[2023-11-27 05:33] LABS: HEMOGLOBIN 10.5 g/dl (12.5-16.0); MEAN CELL VOLUME 88 fl (80.0-100.0); MEAN CORPUSCULAR HEMOGLOBIN 30 pg (27-31); MEAN CORPUSCULAR HGB CONC 34 g/dl (33.0-37.0); MEAN PLATELET VOLUME 9.2 fl (7.4-10.4); PLATELET COUNT 164 K/mm3 (130-400); RED BLOOD COUNT 3.46 M/mm3 (4.10-5.30)
[2023-11-27 05:45] LABS: HEMATOCRIT 30.6 % (37.0-47.0)
[2023-11-27 05:50] LABS: CALCIUM 8.3 mg/dL (8.4-10.2); CREATININE, serum 0.84 mg/dL (0.57-1.11); POTASSIUM 4.3 mEq/L (3.5-4.5)
[2023-11-27 06:09] LABS: LYMPHOCYTE 8 % (20.0-51.0); NEUTROPHILS 67 % (42.0-75.2)
[2023-11-27 06:10] LABS: PLATELET ESTIMATE NORMAL (NORMAL)
[2023-11-27 06:11] LABS: BAND 11 % (0-10)
[2023-11-27] MEDS ORDERED: dilTIAZem CD (24-HR) 240 MG CAP PO SCH (09:00)
--- NOTE | 2023-11-27 12:00 | NUR ---
Patient has been on HF nasal cannula at 10-15L as a break from BIPAP and to eat. Patient feeling more short of breath and requesting to go back on the BIPAP. BIPAP placed at this time. CHELSEA Larsen and family at bedside; discussed plan of care and updates with them.
--- NOTE | 2023-11-27 13:49 | NUR ---
Data: Spiritual Care visit offered during Manager Plumbing rounds. Patient on CPAP machine. Visitor declined for Patient. Assessment: None. Declined. Plan of Care: Chaplains will remain available as needed/requested while Patient is admitted to this hospital.
[2023-11-27] MEDS ORDERED: Furosemide 40 MG/4 ML VIAL IV SCH (17:00)
--- NOTE | 2023-11-27 17:31 | NUR ---
Resting in bed; tolerating bipap well at this time. Call light left within reach; no concerns at this time.
--- NOTE | 2023-11-27 17:55 | NUR ---
Patient awake and requesting a break from BIPAP. RT notified and placed on Airvo at 45L 90%. VS stable on this setting. Dinner tray offered but patient reported not feeling up to eating at this time.
--- NOTE | 2023-11-27 21:57 | NUR ---
PT IS SITTING UP IN BED WATCHING TV. SHE IS ON AIRVO AND DOES NOT APPEAR TO BE VERY SHORT OF BREATH. SHE HAS THE PUREWICK IN PLACE AND IS VOIDING. SHE HAS 3 IV SITES ALL LOCKED AT THIS TIME. SHE IS ALERT AND ORIENTED AND DOES VOICE CONCERNS ABOUT WHAT WILL HAPPEN IF SHE WILL CONTINUE TO NEED THIS MUCH OXYGEN. SHE IS ALSO REQUESTING SOME METAMUCIL IN THE MORNING. SHE HAS HER CALL LIGHT AND HER PERSONAL PHONE AT THE BEDSIDE.
[2023-11-28] VITALS (1119 sets, daily range): BP systolic 93–126; BP diastolic 55–73; PULSE 68–93; TEMP 98.2–99.4; O2SAT 56–99
[2023-11-28 05:45] LABS: HEMOGLOBIN 10.7 g/dl (12.5-16.0); MEAN CELL VOLUME 88 fl (80.0-100.0); MEAN CORPUSCULAR HEMOGLOBIN 31 pg (27-31); MEAN CORPUSCULAR HGB CONC 35 g/dl (33.0-37.0); MEAN PLATELET VOLUME 9.6 fl (7.4-10.4); PLATELET COUNT 203 K/mm3 (130-400); RED BLOOD COUNT 3.51 M/mm3 (4.10-5.30); REDCELL DISTRIBUTION WIDTH-CV 13.3 % (11.5-14.5)
[2023-11-28 05:50] LABS: HEMATOCRIT 30.9 % (37.0-47.0)
[2023-11-28 06:06] LABS: CALCIUM 8.7 mg/dL (8.4-10.2); CREATININE, serum 0.95 mg/dL (0.57-1.11); MAGNESIUM 1.9 mg/dL (1.6-2.6); POTASSIUM 3.9 mEq/L (3.5-4.5)
[2023-11-28 06:21] LABS: BAND 9 % (0-10); LYMPHOCYTE 5 % (20.0-51.0); NEUTROPHILS 77 % (42.0-75.2); OVALOCYTES 1+; PLATELET ESTIMATE NORMAL (NORMAL)
--- NOTE | 2023-11-28 07:30 | NUR ---
Patient on BIPAP all night and requesting a break. Placed on Air VO. Patient appears more short of breath this shift. Can only speak a few words at at time between breaths. 02 low 90's on Air vo settings. Able to take am meds with applesauce. Encouraged to try to rest and not speak too much as speaking causes her o2 to desaturate. Discussed with plan of care with Dr. Whipple.
--- NOTE | 2023-11-28 07:33 | NUR ---
PLACED PT ON AIRVO 45L 85%. RN NOTIFIED
--- NOTE | 2023-11-28 08:52 | NUR ---
SW met with patient to discuss discharge plan. Patient very short of breath with bipap on. Patient able to speak with SW but is veryshort of breath with talking and appears very weak and anxious. Discussed possible rehab at discharge which patient is open to. Dr. Adilia Whipple entered room and discussed patient's condition with her and recommends referral to [facility] due to increasing oxygen need. Referral documents and clinicals sent via secure email to [facility]. Patient states daughter will visit this morning. SW will follow up with daughter once she arrives to patient room. Discharge plan: LTACH.
[2023-11-28] MEDS ORDERED: Insulin Lispro (HumaLOG) SQ SCH (08:54)
[2023-11-28] MEDS ORDERED: DEXAMETHASONE 6 MG IV SCH (08:55)
[2023-11-28] MEDS ORDERED: Umeclidinium/Vilanterol 62.5-25 MCG INHALATION/INHALER IH SCH (09:00)
[2023-11-28] MEDS ORDERED: Dextrose 50% Water 25 GM/50 ML SYRINGE IV PRN (09:00)
[2023-11-28] MEDS ORDERED: Dextrose (Glucose) 15 GM (4 x 3.75 GM) Chewable TABLET PACK PO PRN (09:00)
[2023-11-28] MEDS ORDERED: Glucagon 1 MG VIAL IM PRN (09:00)
[2023-11-28] MEDS ORDERED: dexAMETHasone 10 MG/ML VIAL IV SCH (09:00)
[2023-11-28] MEDS ORDERED: Potassium Bicarbonate/Citrate 20 MEQ Effervescent TAB PO ONE (11:15)
[2023-11-28] MEDS ORDERED: Furosemide 40 MG/4 ML VIAL IV ONE (12:30)
--- NOTE | 2023-11-28 15:30 | NUR ---
Updated daughter Debra via telephone about patient's current condition. Reported that patient was very ill but stable on bipap at this time. All questions and concerns addressed.
--- NOTE | 2023-11-28 17:30 | NUR ---
Patient requesting a break from BIPAP to eat. Transitioned to Air-vo. 02 maintaining 90-92% while eating. Denies any needs or concerns at this time. Will continue to monitor.
--- NOTE | 2023-11-28 19:43 | NUR ---
PT SHILOENLY ON AIRVO. DAUGHTER AT BEDSIDE VISITING. PT STABLE WITH NO SIGN OF DISTRESS AT THIS TIME. CONTINUE PLAN OF CARE.
[2023-11-28] MEDS ORDERED: Furosemide 40 MG/4 ML VIAL IV SCH (21:00)
[2023-11-29] VITALS (1216 sets, daily range): BP systolic 99–129; BP diastolic 55–75; PULSE 79–92; TEMP 97.5–98.7; O2SAT 66–100
--- NOTE | 2023-11-29 00:40 | NUR ---
PT PLACED ON BI-PAP BY RT - SEE RT NOTES. PT TOLERATING AT THIS TIME. PT DECLINES REPOSITIONING. PT WAS URINATING AROUND THE URINARY CATH WHEN SHE COUGHED. 5ML NS ADDED TO WATTS BALLOON. PT REMAINS STABLE ON ROUNDS. NO SIGN OF DISTRESS AT THIS TIME. CONTINUE PLAN OF CARE.
[2023-11-29 06:07] LABS: BASO % 0.2 % (0.0-2.0); GRAN # 14.8 K/mm3 (1.4-6.5); HEMOGLOBIN 11.5 g/dl (12.5-16.0); LYMPH # 0.7 K/mm3 (1.2-3.4); LYMPH % 4.4 % (20.0-51.0); MEAN CELL VOLUME 89 fl (80.0-100.0); MEAN CORPUSCULAR HEMOGLOBIN 30 pg (27-31); MEAN CORPUSCULAR HGB CONC 34 g/dl (33.0-37.0); MEAN PLATELET VOLUME 10.2 fl (7.4-10.4); MONO # 1.1 K/mm3 (0.1-0.6); MONO % 6.3 % (1.7-9.3); PLATELET COUNT 202 K/mm3 (130-400); RED BLOOD COUNT 3.78 M/mm3 (4.10-5.30); REDCELL DISTRIBUTION WIDTH-CV 13.3 % (11.5-14.5)
[2023-11-29 06:13] LABS: HEMATOCRIT 33.7 % (37.0-47.0)
--- NOTE | 2023-11-29 06:19 | NUR ---
PT STABLE OVERNIGHT. WORE BIPAP FROM APPROXIMATELY 2300 TO 0700. PT HAD 375 OUT IN WATTS, BUT HAD ON SOAKED CHUX DUE TO LEAKAGE. 5ML NS ADDED TO WATTS BALLOON. NO FURTHER LEAKAGE NOTED OVERNIGHT. NO SIGN OF DISTRESS AT THIS TIME. CONTINUE PLAN OF CARE.
[2023-11-29 06:29] LABS: CALCIUM 8.9 mg/dL (8.4-10.2); CREATININE, serum 1.03 mg/dL (0.57-1.11); MAGNESIUM 1.7 mg/dL (1.6-2.6); POTASSIUM 3.7 mEq/L (3.5-4.5)
--- NOTE | 2023-11-29 07:00 | NUR ---
RECEIVED REPORT FROM MALIHA BUSBY. PT RESTING IN BED, VSS. PT ON BIPAP AT THIS TIME, TOLERATES WELL. PER REPORT PT TAKES BREAKS FROM BIPAP W/ AIRVO. NO DRIPS INFUSING AT THIS TIME. CATHETER IN PLACE TO DEPENDENT DRAINAGE. PT IS ALERT AND ORIENTED TO SELF BUT DOES HAVE SOME INTERMITTENT CONFUSION. BED ALARM ON AND CALL LIGHT IN REACH.
[2023-11-29] MEDS ORDERED: Potassium Bicarbonate/Citrate 20 MEQ Effervescent TAB PO SCH (08:45)
[2023-11-29] MEDS ORDERED: dexAMETHasone 4 MG TAB PO SCH (09:00)
[2023-11-29] MEDS ORDERED: Magnesium Oxide 400 MG TAB PO SCH (09:00)
--- NOTE | 2023-11-29 12:19 | NUR ---
MAHIN met with patient and daughter Delisa, with Dr. Adilia Whipple and RN Liliane. Daughter in [facility] on speaker phone. Dr. Whipple updated patient and family on patient's condition and plan for transfer to [facility] in a day or two. Daughter on phone questioning Dr. Whipple "Do I need to come now? Is she going to get better or worse?" Dr. Whipple communicated that patient's condition can change but is stable at this time. Plan to transfer to LTACH soon. SW remained in room after RN and Dr. Whipple left. Continued to answer questions, mainly for daughter on phone. Dtr Delisa at bedside displayed annoyance and frustration with her sister which is stressing for patient. SW explained to patient that her daughter Delisa is DPOA for health and finances and can handle everything that needs done at this time and encouraged patient to rest. SW communicated to daughter on phone that patient is weak and gets very short of breath with minimal talking and to limit her phone calls to just a few minutes and not extended conversations. Delisa came out of patient's room, tearful. MAHIN met with her in family room and allowed her to vent her feelings and decompress. Delisa states that patient is frustrated and she thinks fearful of what's happening and feels that patient is "taking it out on her". SW provided supportive listening and allowed her time to discuss her frustration. Discharge plan: LTACH
--- NOTE | 2023-11-29 19:46 | NUR ---
PATIENT LAYING IN BED, ALERT AND CALM. INTERMITTENT CONFUSIN. DAUGHTER AT BEDSIDE. CURRENTLY ON AIRVO. PICC TO RIGHT UPPER ARM. WATTS CATHETER IN PLACE.
[2023-11-30] VITALS (1353 sets, daily range): BP systolic 115–135; BP diastolic 70–87; PULSE 73–104; TEMP 97.6–98.5; O2SAT 82–100
[2023-11-30 04:42] LABS: HEMATOCRIT 32.4 % (37.0-47.0); HEMOGLOBIN 11.1 g/dl (12.5-16.0); MEAN CELL VOLUME 89 fl (80.0-100.0); MEAN CORPUSCULAR HEMOGLOBIN 30 pg (27-31); MEAN CORPUSCULAR HGB CONC 34 g/dl (33.0-37.0); MEAN PLATELET VOLUME 9.4 fl (7.4-10.4); PLATELET COUNT 283 K/mm3 (130-400); RED BLOOD COUNT 3.66 M/mm3 (4.10-5.30); REDCELL DISTRIBUTION WIDTH-CV 13.4 % (11.5-14.5)
[2023-11-30 04:55] LABS: CREATININE, serum 1.14 mg/dL (0.57-1.11); MAGNESIUM 1.8 mg/dL (1.6-2.6); POTASSIUM 3.9 mEq/L (3.5-4.5)
[2023-11-30 05:28] LABS: BAND 3 % (0-10)
[2023-11-30 05:29] LABS: BURR CELLS 1+; OVALOCYTES 1+; PLATELET ESTIMATE NORMAL (NORMAL)
[2023-11-30 05:30] LABS: LYMPHOCYTE 5 % (20.0-51.0); NEUTROPHILS 87 % (42.0-75.2)
[2023-11-30] MEDS ORDERED: *Potassium Replacement Protocol MC SCH (06:00)
[2023-11-30] MEDS ORDERED: Potassium Chloride 100 ML IV ONE (06:00)
--- NOTE | 2023-11-30 07:15 | NUR ---
Report received from MALIHA Swain. Reviewed labs and overnight events. Potassium currenty being replaced to PICC in MERT. Pt has umanzor, free of kinks and twists. Pt currently resting on bipap. Bed alarm activated. Call light within reach. Will conitnue with POC.
[2023-11-30] MEDS ORDERED: dexAMETHasone 4 MG TAB PO SCH (09:00)
--- NOTE | 2023-11-30 11:08 | NUR ---
MAHIN spoke with Duy at [facility]. Per Dr. Adilia Whipple, patient may be ready for transfer tomorrow. Updated clinicals sent via secure email to [facility]. MAHIN spoke with daughter Delisa in bang outside room, she asked that SW speak with another daughter on phone to answer any questions. All questions related to transfer answered. Discharge plan: [facility]
--- NOTE | 2023-11-30 14:12 | NUR ---
MAHIN notified by Director that patient may be transferred to medical floor if not transferred to [facility]. MAHIN spoke with RN Liliane in ICU who stated that she was not informed of this information and will contact Dr. Whipple. Dr. Whipple asked that transfer be discussed with beckie Hercules prior to his agreement to transfer today. MAHIN met with FUEL DOCK ATTENDANT Liliane who stated Delisa was on her way to ICU to meet with patient and notary to sign legal paperwork at 1330. Radio Communications Mechanician, notary and another person arrived at 1330 to meet with patient with legal documents in hand. Beckie Hercules arrived approximately 15 minutes later and also was meeting with legal team and patient in room. This meeting has lasted one hour. MAHIN called Duy at [facility] to inquire if they can accept patient today. He stated they can admit any time today but advised if it gets to be any later than 1800 to hold off until tomorrow. MAHIN to alert Duy if patient and family are in agreement with transfer today.
--- NOTE | 2023-11-30 14:54 | NUR ---
MAHIN spoke with Director Violeta Christianson to discuss case. She advised that due to strenous activity of meeting with legal team and stress of transport that discharge would be scheduled for tomorrow per Dr. Whipple's original plan. Daughter and RN Liliane informed. MAHIN spoke with Duy [facility]senthal [facility] who provided room #[address] Andrews. Report #[phone]. MAHIN called [facility] to schedule transport at 1200 noon tomorrow. Discharge plan: LTACH
--- NOTE | 2023-11-30 19:59 | NUR ---
PT IS SITTING UP IN BED. SHE HAD EATEN A SUNDAE HER DAUGHTER HAD BROUGHT IN. SHE HAS AN ICE TEA AT THE BEDSIDE. SHE IS ALERT AND ORIENTED. SHE IS NERVOUS ABOUT GOING TO [facility] TOMORROW AND WOULD LIKE SOME ATARAX AND TYLENOL AT BEDTIME. SHE REMAINS ON THE AIRVO AND SHE HAS A WATTS CATHETER. SHE HAS THE CALL YUEN AND HER PHONE AT THE BEDSIDE.
[2023-12-01] VITALS (490 sets, daily range): BP systolic 116–131; BP diastolic 68–86; PULSE 80–97; TEMP 97.9–98.5; O2SAT 72–99
[2023-12-01 05:21] LABS: HEMOGLOBIN 11.3 g/dl (12.5-16.0); MEAN CELL VOLUME 88 fl (80.0-100.0); MEAN CORPUSCULAR HEMOGLOBIN 30 pg (27-31); MEAN CORPUSCULAR HGB CONC 34 g/dl (33.0-37.0); PLATELET COUNT 276 K/mm3 (130-400); RED BLOOD COUNT 3.75 M/mm3 (4.10-5.30); REDCELL DISTRIBUTION WIDTH-CV 13.2 % (11.5-14.5)
[2023-12-01 05:28] LABS: HEMATOCRIT 33.1 % (37.0-47.0)
[2023-12-01 05:37] LABS: CALCIUM 8.8 mg/dL (8.4-10.2); CREATININE, serum 0.97 mg/dL (0.57-1.11); MAGNESIUM 1.8 mg/dL (1.6-2.6); POTASSIUM 4.1 mEq/L (3.5-4.5)
[2023-12-01 05:44] LABS: BAND 2 % (0-10); LYMPHOCYTE 7 % (20.0-51.0); METAMYELOCYTE 1 % (0-0); NEUTROPHILS 84 % (42.0-75.2)
[2023-12-01 05:45] LABS: PLATELET ESTIMATE NORMAL (NORMAL)
--- NOTE | 2023-12-01 09:27 | NUR ---
SW attended clinical rounds. Patient stable for discharge to [facility]. Discharge orders and clinicals sent via secure email to [facility]. Transportation set for 1200 with [facility]. SW called patient's daughter Delisa to inform of transfer information. Message left on Delisa's phone. Patient awake and alert and is agreeable to transfer.
--- NOTE | 2023-12-01 12:17 | NUR ---
EMS ARRIVED DIRECTLY AT 1200. REPORT WAS GIVEN TO EMS. PATIENT WAS TRANSFERRED TO EMS STRETCHER, HOOKED UP TO VITALS/TELEMETRY MACHINE, AND SWITCHED OVER TO BIPAP. PATIENT SENT WITH HER PHONE, PHONE SUBSTITUTE TEACHER, AND GLASSES. EBONIE, DAUGHTER, TOOK THE REST OF THE PATIENT'S BELONGINGS. EMS ESCORTED THE PATIENT OUT OF THE UNIT AT 1215. THIS NURSE ATTEMPTED TO CALL REPORT TO [facility]. I LEFT MY NUMBER WITH THE NURSE TAKING CALLS, AWAITING A CALL BACK FROM [facility].
--- NOTE | 2023-12-01 13:06 | NUR ---
THIS NURSE JUST GOT OFF THE PHONE WITH THE [facility] NURSE, MURIEL. THIS NURSE GAVE REPORT ON THIS PATIENT AT THIS TIME.
== END 2023-12-01 12:15 | disposition short-term general hospital (02) | DRG 871 ==
LOC: COL.ER 15:19 → MEDICAL 19:09 → ICU 11-26 11:23 → MEDICAL 11-26 11:23 → ICU 11-26 11:23
PROVIDERS: Internal Medicine; Internal Medicine Pulmonary Disease; Nurse Practitioner Family; Physician Assistant; ADMIT Internal Medicine
PROC: 5A09557 Assistance with Respiratory Ventilation, Greater than 96 Consecutive Hours, Continuous Positive Airway Pressure (ICD-10-PCS; 2023-11-27)
PROC: 02HV33Z Insertion of Infusion Device into Superior Vena Cava, Percutaneous Approach (ICD-10-PCS; principal; 2023-11-29)
DX: A41.51 Sepsis due to Escherichia coli [E. coli] (principal); J96.21 Acute and chronic respiratory failure with hypoxia; N39.0 Urinary tract infection, site not specified; F31.81 Bipolar II disorder; E87.20 Acidosis, unspecified; J90 Pleural effusion, not elsewhere classified; Z66 Do not resuscitate; I27.20 Pulmonary hypertension, unspecified; I48.0 Paroxysmal atrial fibrillation; I25.10 Atherosclerotic heart disease of native coronary artery without angina pectoris; J44.9 Chronic obstructive pulmonary disease, unspecified; K80.20 Calculus of gallbladder without cholecystitis without obstruction; I12.9 Hypertensive chronic kidney disease with stage 1 through stage 4 chronic kidney disease, or unspecified chronic kidney disease; D64.9 Anemia, unspecified; J45.40 Moderate persistent asthma, uncomplicated; E87.6 Hypokalemia; E83.42 Hypomagnesemia; N20.0 Calculus of kidney; F41.9 Anxiety disorder, unspecified; N18.31 Chronic kidney disease, stage 3a; J98.4 Other disorders of lung; I37.1 Nonrheumatic pulmonary valve insufficiency; I07.1 Rheumatic tricuspid insufficiency; Z79.01 Long term (current) use of anticoagulants; Z90.49 Acquired absence of other specified parts of digestive tract; Z79.899 Other long term (current) drug therapy; Z87.891 Personal history of nicotine dependence; Z90.89 Acquired absence of other organs; Z88.8 Allergy status to other drugs, medicaments and biological substances; Z23 Encounter for immunization
CPT/HCPCS: C1751; J0153; J0696; J1100; J1815; J1940; J2470; J3475; J3480; J7030; J8540; Q3014